=== PATIENT | male | born 1985 ===

== ENCOUNTER 2022-04-22 18:35 | Outpatient (CLI) | payer BC, SELFPAY ==
--- NOTE | 2022-04-22 19:08 | DI.RAD_ITS ---
Exam(s) XR SHOULDER LT COMPLETE 2+V EXAM: XR SHOULDER LT COMPLETE 2+V CLINICAL HISTORY: Shoulder joint pain, left. TECHNIQUE: 2D digital imaging was performed. COMPARISON: No exams were available for comparison FINDINGS: Five views No evidence of fracture or dislocation or abnormal soft tissue calcifications. Subacromial space is not diminished. No degenerative changes. No osseous lesions. Bone density is normal. IMPRESSION: No significant findings. DATA REPOSITORY: RADIATION DOSE DELIVERED:
--- NOTE | 2022-04-22 19:09 | DI.RAD_ITS ---
Exam(s) XR WRIST LT COMPLETE EXAM: XR WRIST LT COMPLETE CLINICAL HISTORY: pain in left wrist. TECHNIQUE: 2D digital imaging was performed. COMPARISON: No exams were available for comparison FINDINGS: 3 views There is a subtle linear lucency at the scaphoid waist, seen on the oblique view. Possible fracture. Recommend additional dedicated scaphoid-navicular view. IMPRESSION: Possible scaphoid waist fracture. Recommend dedicated scaphoid-navicular view. DATA REPOSITORY: RADIATION DOSE DELIVERED:
--- NOTE | 2022-04-22 19:35 | DI.VRAD_ITS ---
PROCEDURE INFORMATION: Exam: XR Left Shoulder Exam date and time: 04/22/2022 7:01 PM Age: 36 years old Clinical indication: Pain; Shoulder; Left TECHNIQUE: Imaging protocol: Radiologic exam of the Left shoulder. Views: 2 or more views. COMPARISON: No relevant prior studies available. FINDINGS: Bones/joints: Three views of the left shoulder reveal no acute fracture or dislocation. Soft tissues: No gross soft tissue abnormality is demonstrated. IMPRESSION: No acute fracture or dislocation seen at the left shoulder. Dictated and Authenticated by: Chandra Arzate MD. Ordering:ERICA Lantigua MD
--- NOTE | 2022-04-22 19:40 | DI.VRAD_ITS ---
PROCEDURE INFORMATION: Exam: XR Left Wrist Exam date and time: 04/22/2022 7:06 PM Age: 36 years old Clinical indication: Pain; Wrist; Left TECHNIQUE: Imaging protocol: Radiologic exam of the Left wrist. Views: 3 or more views. COMPARISON: No relevant prior studies available. FINDINGS: Bones/joints: There is a subtle linear lucency extending part way across the scaphoid waist on the oblique view. A nondisplaced fracture is not confidently excluded. Otherwise, no acute fracture or dislocation is seen at the wrist. Soft tissues: No gross soft tissue swelling is seen. IMPRESSION: Subtle linear lucency extending partly across the scaphoid waist on the oblique view. The appearance is subtle and could be artifactual; however, a nondisplaced scaphoid waist fracture is not confidently excluded. A dedicated scaphoid view could be obtained for additional evaluation. Alternatively CT or MR imaging of the wrist could be performed for definitive evaluation. Dictated and Authenticated by: Chandra Arzate MD. Ordering:ERICA Lantigua MD
== END 2022-04-22 18:55 ==
PROVIDERS: Visit Provider Physician Assistant
DX: M25.532 Pain in left wrist (principal); R93.7 Abnormal findings on diagnostic imaging of other parts of musculoskeletal system; M25.512 Pain in left shoulder
CPT/HCPCS: 73030; 73110